=== PATIENT | female | born 1955 | race Asian ===

== ENCOUNTER 2017-01-18 12:33 | Emergency (ER) | payer SELFPAY ==
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
--- NOTE | 2017-01-18 13:38 | RAD ---
Indication: Nasal and facial plane. CT of the brain was performed without IV contrast. Ventricular structures are midline. No midline shift is noted. The extra-axial spaces are unremarkable. There is no evidence of intracranial mass or hemorrhage. Some calcifications are noted in the left middle cranial fossa. No other high or low density lesions are identified. Mastoid air cells and paranasal sinuses are otherwise unremarkable. IMPRESSION: No intracranial mass or hemorrhage.
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
--- NOTE | 2017-01-18 13:45 | RAD ---
Indication: Neck pain. CT of the cervical spine was obtained in the axial plane. Sagittal and coronal reconstructed images were obtained. Degenerative changes of the atlantoaxial joint is noted. No fracture of the skull base or the C1 ring is noted. The vertebral bodies appear normal in height. No evidence of compression fracture is noted. The visualized disc level demonstrates no focal protrusion. Minimal degenerative disc disease at C5-C6 is noted. IMPRESSION: No fracture is noted. Degenerative disc disease at C5-C6.
--- NOTE | 2017-01-18 13:47 | RAD ---
Indication: Facial injury especially left facial injury. CT of the facial bones was obtained in the axial plane. Sagittal and coronal reconstructed images were obtained. The paranasal sinuses are clear. Ethmoid air cells are unremarkable. Maxillary sinuses are clear. There is no evidence of fracture. The nasal arch is intact. The frontal sinuses are otherwise unremarkable. Orbits are intact. Degenerative changes of the temporomandibular joint are noted. IMPRESSION: No fracture of the facial bones is identified.
--- NOTE | 2017-01-18 14:36 | RAD ---
INDICATION: Right shoulder injury. TECHNIQUE: 4 views of the right shoulder were obtained. FINDINGS: The bones are in normal alignment. No fracture is seen. There is a small cyst calcific density adjacent to the superior lateral aspect of the humeral head suggestive of calcific tendinitis. There is mild osteoarthritic change in the lateral humeral joint. IMPRESSION: NO EVIDENCE OF FRACTURE.
--- NOTE | 2017-01-18 14:38 | RAD ---
INDICATION: Back injury. COMPARISON: There are no prior studies available for comparison. TECHNIQUE: AP and lateral films of the dorsal spine were obtained. FINDINGS: There is a mild dorsal scoliosis convex toward the left side. The vertebra are otherwise in normal alignment. No fracture is seen. There is mild diffuse degenerative disc disease. IMPRESSION: NO EVIDENCE FOR FRACTURE.
--- NOTE | 2017-01-18 14:40 | RAD ---
INDICATION: Right femur injury. TECHNIQUE: 2 views of the right femur were obtained. FINDINGS: The bones are normal alignment. No fracture is seen. IMPRESSION: NO EVIDENCE FOR FRACTURE.
[2017-01-18 15:15] LABS: Urine Bilirubin Negative (Negative); Urine Glucose Negative (Negative); Urine Nitrite Negative (Negative)
[2017-01-18 15:20] VITALS: BP 121/69
== END 2017-01-18 15:18 | disposition home or self-care (01) ==
LOC: ED 12:33
DX: S40.011A Contusion of right shoulder, initial encounter (principal); M54.2 Cervicalgia; M54.9 Dorsalgia, unspecified; V49.9XXA Car occupant (driver) (passenger) injured in unspecified traffic accident, initial encounter; Y93.89 Activity, other specified; Y92.89 Other specified places as the place of occurrence of the external cause
CPT/HCPCS: 70450; 70486; 72070; 72125; 81003; 99282